=== PATIENT | male | born 1975 | race Caucasian/White ===

== ENCOUNTER → 2019-01-06 | Outpatient (CLI) | payer OTHER ==
[~2019-01-06] MED LIST: LISINOPRIL10 MG PO; LISINOPRIL20 MG PO; METFORMIN HCL500 MG PO; NORVASC5 MG PO
--- NOTE | 2019-01-28 15:55 | SLEEP ---
[address] [address] SLEEP STUDY REPORT Name: KAYLEE DAVID II Room: [facility]#: [id number] Admission: 01/06/19 Attend Phys: Beatrice Rios Discharge: Date of : 71 Report #: [id number] THIS REPORT FOR: //name// CC: Mendoza Boyd DO This study has been reviewed in its entirety by a board certified sleep specialist DATE OF SERVICE: 01/07/2019 HOME SLEEP STUDY ATTENDING PHYSICIAN: DR. Mendoza Boyd DO. The patient is 43 years old, who weighs 270 pounds with a BMI of 35.6. The patient has severe subjective hypersomnia with an [place] score of 20. The patient underwent home sleep study performed at [facility]. Total recording time was 430 minutes. During the night study, the patient had 239 obstructive apneas, no central or mixed apneas, and 167 hypopneas. The patient's apnea hypopnea index was 56 per hour. Supine AHI was 81.6 per hour. Nocturnal oximetry study revealed an average oxygen saturation of 87% with the lowest of 63%. A 247 minutes were spent in oxygen saturation of less than 90%. Another 121 minutes with saturation of less than 85% and another 43 minutes with saturation of less than 80%. Mean heart rate was 65 beats per minute with a maximum of 97 beats per minute. IMPRESSION: 1. Severe sleep apnea-hypopnea syndrome with an AHI of 56 per hour. 2. Severe nocturnal hypoxia secondary to obstructive sleep apnea. RECOMMENDATIONS: 1. The patient should return to the sleep lab for in-lab CPAP titration study. 2. Once the patient is optimally treated with CPAP, then follow up in 4-6 weeks to assess compliance with CPAP and to document clinical improvement. 3. Weight loss is strongly advised. 4. Avoid [employer] [place] [place] [address] SLEEP STUDY REPORT Name: KAYLEE DAVID II Room: [facility]#: [id number] Admission: 01/06/19 Attend Phys: Beatrice Rios Discharge: Date of : 71 Report #: [id number] 5. Cautioned regarding driving or operating heavy machinery until the patient's sleep apnea is effectively treated. <ELECTRONICALLY SIGNED> By: Lalo De La Garza MD 01/28/19 1555 [id number] Marques De La Garza MD /nt
== END ==
LOC: M.SLEEPLAB 12-30 10:00
DX: G47.33 Obstructive sleep apnea (adult) (pediatric) (principal); R09.02 Hypoxemia

== ENCOUNTER → 2019-02-26 | Outpatient (CLI) | payer OTHER ==
--- NOTE | 2019-02-28 15:20 | SLEEP ---
[address] [address] SLEEP STUDY REPORT Name: KAYLEE DAVID II Room: [facility]#: [id number] Admission: 02/26/19 Attend Phys: Beatrice Rios Discharge: Date of : 71 Report #: [id number] THIS REPORT FOR: //name// CC: Mendoza Boyd This study has been reviewed in its entirety by a board certified sleep specialist DATE OF SERVICE: 02/26/2019 SLEEP STUDY ATTENDING PHYSICIAN: Mendoza Boyd DO The patient is 43 years old, who weighs 270 pounds with a BMI of 34.7. The patient's [place] score was 20. The patient was referred back for CPAP titration study. Results of the diagnostic study were not available at the time of dictation. During the night study, the patient spent 399 minutes in bed and slept for 349 minutes with a sleep efficiency of 87%. Sleep latency was 15 minutes with a REM latency of 43 minutes. Overall, sleep architecture showed normal stage 1 and stage 2 sleep, increased slow wave, and increased REM sleep, which was 33% of the total sleep time. EKG monitoring revealed an average heart rate of 68 beats per minute, no sustained arrhythmias observed. PLMs were seen at an index of 1 per hour and none caused EEG arousals. The patient was started on CPAP at a pressure of 6 cm of water and titrated up to 15 cm of water. At the final pressure, the patient slept for 92 minutes including 50 minutes of supine REM sleep. The patient's AHI was reduced to 0/hrand oxygen saturation remained above 95% IMPRESSION: 1. Sleep apnea diagnosed by previous sleep study. 2. No clinically significant PLM RECOMMENDATIONS: 1. CPAP at 15 cm water completely eliminated patients sleep apnea and should be used on a nightly basis. 2. Follow up in 4-6 weeks to assess compliance with CPAP and to document clinical improvement. 3. Weight loss is strongly advised. 4. Avoid [employer] [place] [address] SLEEP STUDY REPORT Name: KAYLEE DAVID II Room: [facility]#: [id number] Admission: 02/26/19 Attend Phys: Beatrice Rios Discharge: Date of : 71 Report #: [id number] 5. Caution regarding driving until symptoms of sleep apnea have resolved with CPAP. Lalo De La Garza MD Board certified in sleep medicine. Dictation Ends Here. <ELECTRONICALLY SIGNED> By: Lalo De La Garza MD 02/28/19 1520 [id number] De La Garza MD /nt
--- NOTE | 2019-02-28 15:20 | SLEEP ---
[facility] [address] [place] [address] SLEEP STUDY REPORT Name: KAYLEE DAVID II Room: [facility]#: [id number] Admission: 02/26/19 Attend Phys: Beatrice Rios Discharge: Date of : 71 Report #: [id number] THIS REPORT FOR: //name// CC: Mendoza Boyd DO This study has been reviewed in its entirety by a board certified sleep specialist ADDENDUM This study has been re-dictated gunner krishna <ELECTRONICALLY SIGNED> By: Gunner Krishna MD 02/28/19 1520 [id number] Krishna MD /nt
== END ==
LOC: M.SLEEPLAB 21:00
DX: G47.30 Sleep apnea, unspecified (principal)